=== PATIENT | female | born 1955 | race Caucasian/White ===

== ENCOUNTER 2017-03-17 20:45 | Inpatient (IN) | payer OTHER ==
[~2017-03-17] VITALS: Ht 154.9 cm; Wt 83.7 kg
--- NOTE | 2017-03-17 23:11 | DIAGNOSTIC IMAGING REPORT ---
PROCEDURE: XR CHEST 2 VIEW INDICATION: FEVER TECHNIQUE: Two views. COMPARISON: None. FINDINGS: Slight patient rotation. The cardiomediastinal contour and central vasculature are within normal limits. Strandy density laterally in the left lower lung and in the retrocardiac region. Minimal parenchymal opacity in the right infrahilar region. No effusion. No pneumothorax. The visualized osseous structures are intact. IMPRESSION: 1. Minor bibasilar and retrocardiac strandy densities, probably atelectasis/scarring although pneumonia is not excluded.
--- NOTE | 2017-03-17 23:42 | ED ORDER SUMMARY ---
..... Patient: DOROTHY WING OrderSheet [facility] VisitID: [id number] [place] [address] 61y, F Registration Date/Time: 03/17/2017 ORDER SHEET Weight: 81.6 kg (stated) Allergies: Ceftriaxone, Ciprofloxacin, Iodine GENERAL ORDERS: Blood Culture (No) (N/A) Urgent (20:58 03/17/2017 Migdalia Booker) (Ack 21:02 AMcQuoid ER Tech1) (21:07 TBowen R.N.) CBC w Diff Urgent (20:59 03/17/2017 Migdalia Booker) (Ack 21:02 AMcQuoid ER Tech1) (21:07 TBowen R.N.) CMP Urgent (20:59 03/17/2017 Migdalia Booker) (Ack 21:02 AMcQuoid ER Tech1) (21:07 TBowen R.N.) UA-Culture if indicated Urgent (20:59 03/17/2017 Migdalia Booker) (Ack 21:02 AMcQuoid ER Tech1) (1:38 Martín R.N.) Lactate, Serum Urgent (20:59 03/17/2017 Migdalia Booker) (Ack 21:02 AMcQuoid ER Tech1) (21:07 TBowen R.N.) PCT (Procalcitonin) Urgent (20:59 03/17/2017 Migdalia Booker) (Ack 21:02 AMcQuoid ER Tech1) (21:07 TBowen R.N.) Chest 2V Urgent (21:37 03/17/2017 Panda RUBIO) (Ack 21:39 AMcQuoid ER Tech1) (21:54 Gualberto) MEDICATION ORDERS: Tylenol PO 1,000 mg (NOW) (20:59 03/17/2017 Migdalia Booker) (21:08 HSoule) IV FLUIDS: IV NS : initial bolus 1000 mL (1000 mL/hr), then 1000 mL/hr for X2 (NOW) (Infuse a total of 2.5 L) (20:58 03/17/2017 Migdalia Booker) (21:04 omanlexi R.N.) Vancomycin IV 25 mg/kg (NOW) (21:38 03/17/2017 Panda RUBIO) (22:09 Martín Guzman) Invanz IV 1 gm/50mL (NOW) (21:38 03/17/2017 Panda RUBIO) (22:08 Martín Guzman) ORDER SHEET NOTES: [Electronically signed by Yo Villegas R.N. (01:45 03/18/2017)] [Electronically signed by René Zaidi MD (20:55 03/18/2017)] [Electronically locked/signed by Yo Villegas R.N. (01:45 03/18/2017)]
--- NOTE | 2017-03-17 23:42 | ED CLINICAL REPORT ---
Clinical Report - Physicians/Mid Levels Located Within [facility] [address] [place] [address] 03/17/2017 20:46 Patient: DOROTHY WING Time Seen: 21:19 Mar 17 2017. Arrived- By private vehicle. Historian- patient. Not EMS personnel. CPT: ER phys charges level 5 (#[id number]). HISTORY OF PRESENT ILLNESS Chief Complaint: Weak , confused with fever and abdominal pain. ( ( Pt thinks that she might have passed a kidney stone 3 days ago but has developed lower Abd Pain and a fever. Pt's spouse states that she became confused at 1900 after a nap, with slurred speech and poor coordination while trying to ambulate.). Onset. (about 2 days ago). She has had abdominal pain and flank pain. Last oral intake by patient was (about 3 hours ago). Poor po for 2 days.). This started about 3 days FEED WEIGHER and is still present. At its maximum, severity described as moderate. When seen in the E.D., severity described as moderate. The patient has had fatigue and weakness. Similar symptoms previously: None. Recent medical care: Not recently seen/assessed. REVIEW OF SYSTEMS The patient has had fever, abdominal pain, chills and weakness. No sore throat or throat, sinus drainage, cough or difficulty breathing. No chest pain, nausea, vomiting, diarrhea or difficulty with urination. No skin rash, headache, blackouts, diabetic symptoms or easy bruising. The patient has had moderate difficulty with ambulation (staggering tonight.). It has been associated with weakness in both legs. She has had difficulty walking. All systems otherwise negative, except as recorded above. PAST HISTORY Hypertension. Immunizations: up-to-date. The patient has had a hysterectomy. Diabetes Mellitus Type 2. Nephrolithiasis. Cervical Radiculopathy. Depression. Hypertension. Hypercholesterolemia. -- ADDITIONAL SURGERIES: Cholecystectomy. Tonsillectomy. Tubal Ligation. -. Medications: MetFORMIN HCl Oral. GlyBURIDE Oral 5 mg, daily. AmLODIPine Besylate Oral (Tablet 5 mg) 1 tablet, daily. Citalopram Hydrobromide Oral (Tablet 20 mg) 1 tablet, daily. Hydrochlorothiazide Oral (Tablet 25 mg) 1 tablet, daily. Losartan Potassium Oral (Tablet 50 mg) 1 tablet, daily. Simvastatin Oral (Tablet 20 mg) 1 tablet, at bedtime. Allergies: Ceftriaxone. Definite Moderate(hives) Ciprofloxacin. Definite Moderate(hives) Iodine. Definite Moderate(Anaphylaxis) (SOB). SOCIAL HISTORY Smoker- current status unknown. No alcohol use or drug use. ADDITIONAL NOTES The nursing notes have been reviewed. PHYSICAL EXAM Vital Signs: 03/17/2017 20:51 BP: 157/98. HR: 134. RR: 20. O2 saturation: 90%. Temp: 103 F. Pain level now: 12/08. Appearance: Alert. Patient in mild distress. Eyes: Pupils equal, round and reactive to light. Eyes normal inspection. ENT: Dry mucous membranes present. Pharynx normal. Neck: Normal inspection. CVS: Tachycardia. Heart sounds normal. Pulses normal. Respiratory: No respiratory distress. Breath sounds normal. Chest nontender. Abdomen: Soft and nontender. Bowel sounds normal. Back: Normal inspection. No CVA tenderness. Skin: Normal skin color. No rash. Extremities: Extremities exhibit normal ROM. Neuro: Oriented X 3. No motor deficit. She has had constant, generalized weakness. No sensory deficit. LABS, X-RAYS, AND EKG Chest X-ray: (Patchy RLL and LLL infiltrates.). Views: PA and lateral. Technique: good. The X-rays were independently viewed by me and interpreted contemporaneously by me. Prior films were not available for comparison. Laboratory Tests: UA-Culture if indicated: (LEONID: 03/17/2017 23:00) ( MsgRcvd 03/17/2017 23:14) Final results Test Result Flag Units (Reference) URINE COLOR YELLOW URINE APPEARANCE CLEAR URINE GLUCOSE NEGATIVE (NEGATIVE) URINE BILIRUBIN NEGATIVE (NEGATIVE) URINE KETONE NEGATIVE (NEGATIVE) URINE SPECIFIC GRAVITY 1.010 (1.010-1.030) URINE PH 6.0 (5.0-8.0) URINE PROTEIN 1+ (NEGATIVE) URINE UROBILINOGEN 0.2 EU/dL (0.2-1.0) URINE NITRITE NEGATIVE (NEGATIVE) URINE BLOOD 2+ (NEGATIVE) URINE LEUK ESTERASE TRACE (NEGATIVE) URINE RBC 0-1 rbc/hpf (0-1) URINE WBC 5-10 wbc/hpf (0-1) URINE EPITHELIAL CELLS 0-1 EPI/hpf (0-5) URINE BACTERIA MODERATE (2+ TO 3+) (NONE SEEN) URINE COMMENT CULTURE INDICATED 1-3 GRANULAR CASTS. 1+ AMORPHOUS URATES.URINE CULTURES ARE SET-UP BASED ON THE FOLLOWING CRITERIA:POSITIVE NITRITEPOSITIVE LEUKOCYTE ESTERASEGREATER THAN 10 WHITE BLOOD CELLSMODERATE (2+) OR GREATER BACTERIA CBC w Diff: (LEONID: 03/17/2017 20:58) ( MsgRcvd 03/17/2017 22:06) Final results Test Result Flag Units (Reference) WHITE BLOOD COUNT 9.5 K/uL (4.5-11.5) RED BLOOD COUNT 4.14 M/uL (4.00-5.20) HEMOGLOBIN 11.4 L gm/dL (12.0-16.0) HEMATOCRIT 33.8 L % (36.0-46.0) MEAN CELL VOLUME 82 fL (80-100) MEAN CORPUSCULAR HGB 28 pg (26-34) MEAN CORPUSCULAR HGB CONC 34 g/dL (31-37) RED CELL DISTRIBUTION WIDTH 15.5 H % (11.6-14.8) PLATELET COUNT 139 L K/uL (150-400) POLY % 94 H % (50-75) BAND % 0 % (0-8) LYMPH 5 L % (25-40) MONO 1 L % (3-14) EOSINOPHIL % 0 % (0-4) BASOPHIL % 0 % (0-2) METAMYELOCYTE % 0 % (0-1) MYELOCYTE 0 % (0-1) OTHER CELL TYPE 0 POIKILOCYTOSIS 1+ ANISOCYTOSIS 1+ OCT COMMENT GIANT PLATELETS SEEN Lactate, Serum: (LEONID: 03/17/2017 20:58) ( MsgRcvd 03/17/2017 21:35) Final results Test Result Flag Units (Reference) LACTIC ACID 1.5 mmol/L (0.4-2.0) [id number]: (LEONID: 03/17/2017 20:58) ( MsgRcvd 03/17/2017 22:07) Final results Test Result Flag Units (Reference) PROCALCITONIN 47.8 H ng/mL (0-0.5) PCT Concentration: Interpretation : Risk/option for action PCT <=0.5 ng/mL : Systemic : Low risk forinfection(sepsis): progression to severeis not likely. : systemic infection.Local bacterial : CAUTION-PCT levelsinfection is : below 0.5 ng/mL do notpossible. : exclude an infection,because localizedinfections (withoutsystemic signs) may beassociated with suchlow levels. If PCT ismeasured very earlyafter a bacterialchallenge (usually <6hours), these valuesmay still be low. Inthis case PCT shouldbe re-assessed 6-24hours later. PCT >0.5 and : Systemic infection: Moderate risk for<= 2 ng/mL : (sepsis) is : progression to severepossible, but : systemic infection.other conditions : The patient should beare known to : closely monitoredelevate PCT. : both clinically andby re-assessing PCTwithin 6-24 hours. PCT > 2 ng/mL : Systemic infection: High risk for(sepsis) is likely: progression to severeunless other : systemic infection.causes are known. : PCT >= 10 ng/mL : Important systemic: High likelihood ofinflammatory : severe sepsis orresponse, almost : septic shock.exclusively due to:severe bacterial :sepsis or septic :shock. : CMP: (LEONID: 03/17/2017 20:58) ( MsgRcvd 03/17/2017 21:20) Final results Test Result Flag Units (Reference) GLUCOSE 227 H mg/dL (70-110) BUN 42 H mg/dL (7-18) CREATININE 1.4 H mg/dL (0.6-1.3) Estimated GFR 40.63 mL/min Estimated GFR- 49.24 mL/min Note: Persistent reduction over 3 months in eGFR<60 mL/min/1.73 m2 defines CKD. Patients with eGFR values>=60 mL/min/1.73 m2 may also have CKD if evidence ofpersistent proteinuria. Additional information may be foundat www.kidney.org. SODIUM 135 L mmol/L (136-145) POTASSIUM 3.5 mmol/L (3.5-5.1) CHLORIDE 98 mmol/L (98-107) CARBON DIOXIDE 24 mmol/L (21-32) CALCIUM 8.7 mg/dL (8.5-10.1) TOTAL PROTEIN 7.8 g/dL (6.4-8.2) ALBUMIN 2.9 L g/dL (3.3-5.0) BILIRUBIN, TOTAL 0.7 mg/dL (0.0-1.0) ALKALINE PHOSPHATASE 85 U/L (46-116) AST (SGOT) 17 U/L (15-37) ALT (SGPT) 24 U/L (12-78) . PROGRESS AND PROCEDURES Course of Care: IV NS BC times 2 Vancomycin 25 mg /kg IV Invanz 1 g IV. Discussed case with on-call health care provider, (Dann). Reviewed test results. Agreed upon treatment plan and decision to admit. Health care provider will see patient in hospital. Patient/family counseled. Old medical records ordered. Disposition orders written. Disposition: Admitted to the Critical Care Unit. CLINICAL IMPRESSION Sepsis Fever Weakness UTI. (Electronically signed by René Zaidi MD 03/18/2017 20:55)
--- NOTE | 2017-03-17 23:42 | ED ORDER SUMMARY ---
..... Patient: DOROTHY WING OrderSheet [facility] VisitID: [id number] [place] [address] 61y, F Registration Date/Time: 03/17/2017 ORDER SHEET Weight: 81.6 kg (stated) Allergies: Ceftriaxone, Ciprofloxacin, Iodine GENERAL ORDERS: Blood Culture (No) (N/A) Urgent (20:58 03/17/2017 Migdalia Booker) (Ack 21:02 AMcQuoid ER Tech1) (21:07 TBowen R.N.) CBC w Diff Urgent (20:59 03/17/2017 Migdalia Booker) (Ack 21:02 AMcQuoid ER Tech1) (21:07 TBowen R.N.) CMP Urgent (20:59 03/17/2017 Migdalia Booker) (Ack 21:02 AMcQuoid ER Tech1) (21:07 TBowen R.N.) UA-Culture if indicated Urgent (20:59 03/17/2017 Migdalia Booker) (Ack 21:02 AMcQuoid ER Tech1) (1:38 Martín R.N.) Lactate, Serum Urgent (20:59 03/17/2017 Migdalia Booker) (Ack 21:02 AMcQuoid ER Tech1) (21:07 TBowen R.N.) PCT (Procalcitonin) Urgent (20:59 03/17/2017 Migdalia Booker) (Ack 21:02 AMcQuoid ER Tech1) (21:07 TBowen R.N.) Chest 2V Urgent (21:37 03/17/2017 Panda RUBIO) (Ack 21:39 AMcQuoid ER Tech1) (21:54 Gualberto) MEDICATION ORDERS: Tylenol PO 1,000 mg (NOW) (20:59 03/17/2017 Migdalia Booker) (21:08 HSoule) IV FLUIDS: IV NS : initial bolus 1000 mL (1000 mL/hr), then 1000 mL/hr for X2 (NOW) (Infuse a total of 2.5 L) (20:58 03/17/2017 Migdalia Booker) (21:04 omanlexi R.N.) Vancomycin IV 25 mg/kg (NOW) (21:38 03/17/2017 Panda RUBIO) (22:09 Martín Guzman) Invanz IV 1 gm/50mL (NOW) (21:38 03/17/2017 Panda RUBIO) (22:08 Martín Guzman) ORDER SHEET NOTES: [Electronically signed by Yo Villegas R.N. (01:45 03/18/2017)] [Electronically signed by René Zaidi MD (20:55 03/18/2017)] [Electronically locked/signed by Yo Villegas R.N. (01:45 03/18/2017)]
--- NOTE | 2017-03-17 23:42 | ED NURSING NOTES ---
Clinical Report - Nurses [facility] [address] [place] [address] 03/17/2017 20:46 Patient: DOROTHY WING TRIAGE Triage time 20:50 Mar 17 2017. Acuity: LEVEL 3. Chief Complaint: PELVIC PAIN and (fever). Alert. IRAIDA COMA SCORE: Iraida Coma Scale: 15- eyes open spontaneously (4); best verbal response- oriented x 4 (5); best motor response- obeys commands (6). --21:09 Yo Villegas R.N. 20:51 03/17/17. BP: 157/98. HR: 134. RR: 20. O2 saturation: 90%. Temp: 103 F. Pain level now: 2/10. Additional comments: Muscle soreness in chest. --21:09 Yo Villegas R.N. <<STRICKEN ENTRY-- Not alert. --23:07 Yo Villegas R.N. --END STRIKE>> Correction --00:55 Yo Villegas R.N. <<STRICKEN ENTRY-- 23:00 03/17/17. BP: 101/71. HR: 75 (regular). RR: 16. O2 saturation: 100%. Temp: 98.1 F (oral). Pain level now: 10/10. Additional comments: Throat Pain. --23:07 Yo Villegas R.N. --END STRIKE>> Correction. --00:55 Yo Villegas R.N. Weight: 81.6 kg stated. Height/Length: 61 inches Per Patient. BMI: 34. --20:55 Yo Villegas R.N. Medications AmLODIPine Besylate Oral (Tablet 5 mg) 1 tablet, daily. Citalopram Hydrobromide Oral (Tablet 20 mg) 1 tablet, daily. Hydrochlorothiazide Oral (Tablet 25 mg) 1 tablet, daily. Losartan Potassium Oral (Tablet 50 mg) 1 tablet, daily. Simvastatin Oral (Tablet 20 mg) 1 tablet, at bedtime. --20:56 Yo Villegas R.N. GlyBURIDE Oral 5 mg, daily. --21:07 Yo Villegas R.N. MetFORMIN HCl Oral. --21:07 Yo Villegas R.N. The following entry was struck and corrected by Yo Villegas R.N., 21:12 (03/17/17) Reason for correction - other(correction). <<STRICKEN ENTRY-- GlyBURIDE Oral. --21:07 Yo Villegas R.N. --END STRIKE>> The following entry was struck by Yo Villegas R.N., 21:11 (03/17/17) Reason - other. <<STRICKEN ENTRY-- Cyclobenzaprine HCl Oral (Tablet 10 mg) 1 tablet, 2x a day as needed. --20:56 Yo Villegas R.N. --END STRIKE>> The following entry was struck by Yo Villegas R.N., 21:11 (03/17/17) Reason - other. <<STRICKEN ENTRY-- Amoxicillin Oral (Capsule 500 mg) 2 capsules, twice daily. --20:56 Yo Villegas R.N. --END STRIKE>>. Allergies Ceftriaxone. Definite Moderate(hives) Ciprofloxacin. Definite Moderate(hives) Iodine. Definite Moderate(Anaphylaxis) (SOB) --20:56 Yo Villegas R.N. Medication/allergy information source: the patient. --21:09 Yo Villegas R.N. History Arrived by private vehicle. Historian: patient. Accompanied by spouse. ( Pt thinks that she might have passed a kidney stone 3 days ago but has developed lower Abd Pain and a fever. Pt's spouse states that she became confused with slurred speech and poor coordination while try to ambulate.). Onset. (about 2 days ago). She has had abdominal pain and flank pain. Last oral intake by patient was (about 3 hours ago). Treatment FRONT DESK SPECIALIST: (Zofran about 8 hours ago). PAST MEDICAL HX: Hypertension. Immunizations: up-to-date. The patient has had a hysterectomy. SOCIAL HX: Never smoker. No alcohol use or drug use. No infectious disease exposure. ABUSE ASSESSMENT: No report of abuse. FALL RISK ASSESSMENT: Fall risk assessment completed. No fall risk identified. NUTRITIONAL RISK ASSESSMENT: The nutritional risk assessment revealed no deficiencies. FUNCTIONAL ASSESSMENT: Functional assessment: no impairments noted. LEARNING NEEDS ASSESSMENT: The learning needs assessment revealed no barriers. SKIN INTEGRITY ASSESSMENT: Skin integrity risk assessment completed. No skin integrity risk identified. --21: Yo Villegas R.N. PROBLEMS: Diabetes Mellitus Type 2. Nephrolithiasis. Cervical Radiculopathy. Depression. Hypertension. Hypercholesterolemia. --21:08 Yo Villegas R.N. ADDITIONAL SURGERIES: Cholecystectomy. Tonsillectomy. Tubal Ligation. --21:08 Yo Villegas R.N. Interventions ID band on patient. To treatment room. --21: Yo Villegas R.N. PHYSICAL ASSESSMENT To room via wheelchair. GENERAL / NEURO / PSYCH: Alert. Oriented X 4. HEENT: Mucous membranes are pink. CVS: Cardiac rhythm: sinus tachycardia. GI / : Abdominal tenderness in the lower abdomen. SKIN: Skin is warm and dry. --23:03 Yo Villegas R.N. NURSING PROGRESS NOTES 20:54 03/17/2017 Site #1 started via IV in the right antecubital space with an 20g angiocath, with aseptic technique and good blood return; one attempt. Blood drawn: rainbow set. Saline lock flushed with 10 mL saline (and one blood culture). --21:04 Yo Villegas R.N. 20:54 03/17/2017 Started bag #1 1000 mL IV Fluids IV NS (Saline); at 999 mL/hr over 60 minute(s) via site #1. Allergies verified and confirmed 5 rights. IV patency established. IV site checked: no pain, redness, or swelling. IV flushed thoroughly pre- and post-medication administration. --21:04 Yo Villegas R.N. 21:03 03/17/2017 Tylenol (Acetaminophen) PO Tablets 1000 mg given. Allergies verified and confirmed 5 rights. --21:08 Samantha Bryan Monitoring of patient in place. Patient gowned. Reassurance given. Patient identifiers checked. Call light placed in reach. Side rails up. Bed placed in lowest position. Brakes of bed on. Patient ready for evaluation- chart flagged and ED physician notified. --21:10 Yo Villegas R.N. 21:03/17/2017 Site #2 started via IV in the left hand with an 20g angiocath, with aseptic technique and good blood return; one attempt. Blood drawn. Saline lock flushed with 10 mL saline (2nd blood culture done). --21:15 Yo Villegas R.N. 21:05 03/17/2017 Started bag #2 1000 mL IV Fluids IV NS (Saline); at 500 mL/hr over 2 hour(s) via site #2. Allergies verified and confirmed 5 rights. IV patency established. IV site checked: no pain, redness, or swelling. IV flushed thoroughly pre- and post-medication administration. --21:16 Yo Villegas R.N. 21:53 03/17/2017 Invanz IVP 1 gm given over 30 minute(s) via site #1. Allergies verified and confirmed 5 rights. IV patency established. IV site checked: no pain, redness, or swelling. IV flushed thoroughly pre- and post-medication administration. IVP given by RN. --22:08 Yo Villegas R.N. 22:10 03/17/17. BP: 118/61. HR: 105. RR: 16. O2 saturation: 93% on room air. --22:11 Yo Villegas R.N. 21:57 03/17/2017 IV Fluids IV NS Discontinued: bag #2 infused. Total amount infused: 1000 mL. IV patency established. IV site checked: no pain, redness, or swelling. IV flushed thoroughly. --22:12 Yo Villegas R.N. 21:59 03/17/2017 Started 1 gm of Vancomycin IVPB in bag #1 200 mL; at 200 mL/hr over 60 minute(s) via site #2 via IV pump. Allergies verified and confirmed 5 rights. IV patency established. IV site checked: no pain, redness, or swelling. IV flushed thoroughly pre- and post-medication administration. --22:09 Yo Villegas R.N. ( Assisted patient to restroom, patient returned to monitor.). --23:18 Samantha Bryan 23:28 03/17/2017 Vancomycin IVPB Bag Change: bag #1 infused. Total amount infused: 200ml . STARTED bag #2 at 200 mL/hr via IV pump. Confirmed 5 rights. IV patency established. IV site checked: no pain, redness, or swelling. IV flushed thoroughly. (2nd Gm of Vancomycin). --23:38 Yo Villegas R.N. 23:00 03/17/17. BP: 105/56. HR: 92. RR: 25. O2 saturation: 94% on room air. --00:16 Yo Villegas R.N. 00:00 03/18/17. BP: 114/54. HR: 86 (regular). RR: 19. O2 saturation: 94%. --00:17 Yo Villegas R.N. 00:30 03/18/2017 IV Fluids IV NS Discontinued: bag #2 infused. Total amount infused: 1000 mL. IV patency established. IV site checked: no pain, redness, or swelling. IV flushed thoroughly. --01:45 Yo Villegas R.N. 00:50 03/18/2017 Site #[address] upon admission; no pain and no signs of infection or infiltration. Good blood return present. Flushed with 10 mL saline; flushes easily. --01:42 Yo Villegas R.N. 00:50 03/18/2017 Vancomycin IVPB Discontinued: bag #2 infused. Total amount infused: 200 mL. IV patency established. IV site checked: no pain, redness, or swelling. IV flushed thoroughly. --01:40 Yo Villegas R.N. 00:55 03/18/2017 Site #[address] upon admission. Good blood return present. Converted to saline lock and flushed with 10 mL saline; flushes easily. --01:41 Yo Villegas R.N. 22:25. ( Invanz one Gm IVPB completed). --01:44 Yo Villegas R.N. DISPOSITION / DISCHARGE 01:00 03/18/17. BP: 120/64. HR: 83. RR: 20. O2 saturation: 94% on room air. Temp: 98.8 F (oral). Pain level now: 2/10. Additional comments: Generalized Muscle Pain. --01:37 Yo Villegas R.N. Departure time: 0100. --01:37 Yo Villegas R.N. 01:00. Admitted to the Critical Care Unit. Transferred. Transported via stretcher by nurse with IV. Report was given. (PIPO Martinez). Patient's personal items; items were placed in belongings bag and transported with the patient. --01:38 Yo Villegas R.N. Locked/Released at 03/18/2017 1:45 by Yo Villegas R.N.
[2017-03-18] VITALS (14 sets, daily range): BP systolic 107–140; BP diastolic 38–75
--- NOTE | 2017-03-18 02:36 | History & Physical Report ---
Information Source Information Source: Self, Spouse/Partner Reliability: Good History Chief Complaint fever, chills and malaise History of Present Illness Patient is a 61 year old female with a pmh of kidney stones, hypertension, and diabetes mellitus that is presenting with evidence of urosepsis. Patient had been in her usual state of health when she developed a kidney stone and passed it one day ago. Patient has a history of passing around 2 kidney stones a year. She usually passes them without any incidence and has been hospitilized a few times for it in the past. Patient knows when she has kidney stones due to the same flank pain that occurs every time she develps the,. During this incident patient passed the stone and a few hours later started to develop feelings of malaise, had subjective fevers and chills at home. Patient then started developing feelings of nause and vomited twice. Patient was convinced that she had the flu given her symptoms and decided to come to the hosptial. Patient was evaluated here and found that she had a urinary tract infection. Patient History 1. UTI (urinary tract infection) 2. Sepsis 3. Hypertension 4. 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 She manages all her ADLs indepentely. She lives at home with her . She does not smoke, use drugs or drink alcohol. Family History Family history was reviewed; no changes noted. Advance Directive None Medications and Allergies Medications Home Medications amlodopine 5 mg dialy citalopram 20 mg daily hydrocholorthiazide 25 mg dialy Losartan 50 mg daily Simvastatin 20 mg daily Glyburide 5 mg daily Metformin 1000 mg daily oral Current Medications Sig/Nato Start time Last Medication Dose Route Stop Time Status Admin Amlodipine Besylate 5 MG DAILY 03/18 900 AC PO Citalopram 20 MG DAILY 03/18 900 AC Hydrobromide PO Hydrochlorothiazide 25 MG DAILY 03/18 900 AC PO Losartan Potassium 50 MG DAILY 03/18 900 AC PO Insulin Human Lispro See Dose ACHS 03/18 0730 AC Insts (1) SC Acetaminophen 650 MG Q6H PRN 03/18 0230 AC PO Ondansetron HCl 4 MG Q6H PRN 03/18 0230 AC IV Sodium Chloride 1,000 ML ASDIRECTED 03/18 230 AC IV Dose Instructions: (1)Insulin Human Lispro: LOW DOSE: ACCUCHECK AND SLIDING SCALE >>To change sliding scale DISCONTINUE this order and enter a NEW order. Thanks< Allergies Coded Allergies: Iodine (Severe, ANAPHALAXIS 03/18/17) Ceftriaxone (Intermediate, HIVES 03/18/17) Ciprofloxacin (Intermediate, HIVES 03/18/17) Review of Systems Constitutional Fever, Chills, Weakness, Malaise. Denies: Sweats, Other. Eyes Denies: Pain, Vision Change, Conjunctival Inflammation, Eyelid Inflammation, Redness, Other. ENT Denies: Ear Pain, Ear Discharge, Nose Pain, Nasal Discharge, Nasal Congestion, Mouth Pain, Mouth Swelling, Throat Pain, Throat Swelling, Other. Respiratory Denies: Cough, Dry, SOB w/exertion, Wheezing, Hemoptysis, Pleuritic Pain, Sputum , Other. Cardiovascular Denies: Chest Pain, Palpitations, Orthopnea, PND, Edema, Light-headedness, Other. Gastrointestinal Nausea, Vomiting, Abdominal Pain. Denies: Diarrhea, Constipation, Melena, Hematochezia, Other. Genitourinary Denies: Dysuria, Frequency, Incontinence, Hematuria, Retention, Other. Musculoskeletal Denies: Neck Pain, Shoulder Pain, Arm Pain, Back Pain, Hand Pain, Leg Pain, Foot Pain, Other. Skin Denies: Rash, Lesions, Jaundice, Bruising, Other. Neurological Denies: Weakness, Numbness, Incoordination, Change in speech, Confusion, Seizures, Other. Physical Exam Vital Signs / I&Os Vital Signs Date Time Temp Pulse Resp B/P Pulse O2 O2 Flow FiO2 Ox Delivery Rate 03/18 0513 85 22 124/57 99 Room Air 0.0 03/18 0427 85 16 107/57 98 Room Air 0.0 03/18 0311 87 21 110/38 92 Room Air 0.0 03/18 0215 98.4 83 24 111/57 95 Room Air 0.0 03/18 0130 Room Air 03/18 0110 98.4 81 19 124/61 97 Room Air 0.0 General Appearance Alert, Oriented X3, No acute distress, Mild distress HEENT Atraumatic, PERRLA, Moist mucous membranes Lungs Clear to auscultation, Normal air movement Neck Supple, No JVD, No masses, No thyromegaly Cardiovascular Regular rate and rhythm, Normal S1 and S2, No murmurs, gallops, rubs Abdomen Normal bowel sounds, No tenderness, No guarding, No masses, No hepatosplenomegaly Extremities No cyanosis, No clubbing, No edema, Normal pulses Skin No Rashes, No Breakdown Neurological Normal gait, Normal speech, Sensation intact, Cranial nerves intact , Strength 5/5 x4 ext's Psych/Mental Status Mood normal LAB Results Laboratory Tests 03/17 Chemistry Plasma Sodium (136 - 145 mmol/L) 135 Plasma Potassium (3.5 - 5.1 mmol/L) 3.5 Plasma Chloride (98 - 107 mmol/L) 98 CO2 (Enzymatic) (21 - 32 mmol/L) 24 BUN (7 - 18 mg/dL) 42 Creatinine (0.6 - 1.3 mg/dL) 1.4 Est GFR ( Amer) (mL/min) 49.24 Est GFR (Non-Af Amer) (mL/min) 40.63 Glucose (70 - 110 mg/dL) 227 Lactic Acid (0.4 - 2.0 mmol/L) 1.5 Plasma Calcium (8.5 - 10.1 mg/dL) 8.7 Total Bilirubin (0.0 - 1.0 mg/dL) 0.7 AST (15 - 37 U/L) 17 ALT (12 - 78 U/L) 24 Alkaline Phosphatase (46 - 116 U/L) 85 Total Protein (6.4 - 8.2 g/dL) 7.8 Albumin (3.3 - 5.0 g/dL) 2.9 Procalcitonin (0 - 0.5 ng/mL) 47.8 Hematology WBC (4.5 - 11.5 K/uL) 9.5 RBC (4.00 - 5.20 M/uL) 4.14 Hgb (12.0 - 16.0 gm/dL) 11.4 Hct (36.0 - 46.0 %) 33.8 MCV (80 - 100 fL) 82 MCH (26 - 34 pg) 28 RDW (11.6 - 14.8 %) 15.5 Neut % (Auto) (50 - 75 %) 94 Lymph % (Auto) (25 - 40 %) 5 [place] % (Auto) (3 - 14 %) 1 Eos % (Auto) (0 - 4 %) 0 Baso % (Auto) (0 - 2 %) 0 Band Neutrophils % (0 - 8 %) 0 Metamyelocytes % (0 - 1 %) 0 Myelocytes (0 - 1 %) 0 Other Cell Type GIANT PLATELETS SEEN Plt Count, EDTA (150 - 400 K/uL) 139 Poikilocytosis (manual 1+ Anisocytosis (manual) 1+ PUBS MCHC (31 - 37 g/dL) 34 03/17 2300 Urines Urine Color YELLOW Urine Appearance CLEAR Urine pH (5.0 - 8.0) 6.0 Ur Specific [place] (1.010 - 1.030) 1.010 Urine Protein (NEGATIVE) 1+ Urine Ketones (NEGATIVE) NEGATIVE Urine Blood (NEGATIVE) 2+ Urine Nitrite (NEGATIVE) NEGATIVE Urine Bilirubin (NEGATIVE) NEGATIVE Urine Urobilinogen (0.2 - 1.0 EU/dL) 0.2 Ur Leukocyte Esterase (NEGATIVE) TRACE Urine RBC (0 - 1 rbc/hpf) 0-1 Urine WBC (0 - 1 wbc/hpf) 5-10 Ur Epithelial Cells (0 - 5 EPI/hpf) 0-1 Urine Bacteria (NONE SEEN) MODERATE (2+ TO 3+) Urine Glucose (NEGATIVE) NEGATIVE Urine Comment CULTURE INDICATED Microbiology Date/Time Procedure - Status Source Growth 03/18 0125 MRSA Screen - RECD NASAL 03/17 2300 Urine Culture - RECD URINE CC 03/17 2100 Blood Culture - RECD BLOOD 03/17 2058 Blood Culture - RECD BLOOD Assessment and Plan Problem List 1. UTI (urinary tract infection) Plan - evidence of uti on analysis - will treat with invanz given history of allergies to cephalosporins and aminoglycosides - will trend wbc - will monitor vitals - NS will go in at 100 ml.hr 2. Sepsis Plan - antibiotics and fluids intiaited early - no evidence of lactic acid build up - will continue to trend labs - will await urine and blood cultures 3. Hypertension Plan - established diagnosis - will c/w losartan, amlodopine, and hydrochlorothiazide - no blood pressure abnormalities seen thus far 4. Diabetes mellitus Plan - established diagnosis - will hold metformin and glyburide temporarily - will initiate sliding scale - carb consistent diet while in patient
[2017-03-18] MEDS ORDERED: GLIPIZIDE5 MG PO (03:53)
[2017-03-18] MEDS ORDERED: SIMVASTATIN20 MG PO (03:56)
[2017-03-18] MEDS ORDERED: AMLODIPINE BESYL5 MG PO (03:56)
[2017-03-18] MEDS ORDERED: COZAAR25 MG PO (03:58)
[2017-03-18] MEDS ORDERED: METFORMIN HCL500 MG PO (03:58)
[2017-03-18] MEDS ORDERED: HCTZ/TRIAMTEREN1 TA1 PO (03:59)
--- NOTE | 2017-03-18 20:56 | ED MED RECONCILIATION SUMMARY ---
Patient: DOROTHY WING Medication Reconciliation Report [facility] VisitID: [id number] [address] [place] [address] 61y, F Registration Date/Time: 03/17/2017 Weight: 81.6 kg Height/Length: 61 in. BMI: 34.0 ALLERGIES: Ceftriaxone, Ciprofloxacin, Iodine The patient's Home Medications are listed below: THE FOLLOWING MEDICATIONS NEED TO BE RECONCILED: AmLODIPine Besylate Oral (5 mg) 1 tablet, daily Citalopram Hydrobromide Oral (20 mg) 1 tablet, daily GlyBURIDE Oral 5 mg, daily Hydrochlorothiazide Oral (25 mg) 1 tablet, daily Losartan Potassium Oral (50 mg) 1 tablet, daily MetFORMIN HCl Oral Simvastatin Oral (20 mg) 1 tablet, at bedtime The source(s) of the original Home Medication information: patient The following Medications were given to the patient in the Emergency Department: IV NS IV Fluids bolus 0, then 999 mL/hr, administered: 03/17/2017 8:54:00 PM Tylenol [PO] PO 1000 mg, administered: 03/17/2017 9:03:00 PM IV NS IV Fluids bolus 0, then 500 mL/hr, administered: 03/17/2017 9:05:00 PM Invanz [IVP] IVP 1 gm, administered: 03/17/2017 9:53:00 PM Vancomycin [IVPB] IVPB bolus 0, then 1 gm 200 mL/hr, administered: 03/17/2017 9:59:00 PM The following Medications were prescribed to the patient: None.
--- NOTE | 2017-03-18 20:56 | ED MAR SUMMARY ---
..... Medication Administration Record [facility] [address] [place] [address] Patient: DOROTHY WING Visit ID: [id number] 61y, F Weight: 81.6 kg Height/Length: 61 in BMI: 34 ALLERGIES: Ceftriaxone, Ciprofloxacin, Iodine Start 20:54 03/17/2017 Yo Villegas R.N., Stop 00:30 03/18/2017 Yo Villegas R.N. Medication Administered: IV NS (SALINE), Dose: IV Fluids over 60 minute(s), Rate: 999 mL/hr, Dispensed: 1000 mL bag, Site: #1 right AC. Medication Ordered: IV NS : initial bolus 1000 mL (1000 mL/hr), then 1000 mL/hr for X2 (NOW) (Infuse a total of 2.5 L). Given 21:03 03/17/2017 Samantha Bryan, Medication Administered: TYLENOL [PO] (ACETAMINOPHEN), Dose: 1000 mg Tablets PO. Medication Ordered: Tylenol PO 1,000 mg (NOW). Start 21:05 03/17/2017 Yo Villegas R.N., Stop 21:57 03/17/2017 Yo Villegas R.N. Medication Administered: IV NS (SALINE), Dose: IV Fluids over 2 hour(s), Rate: 500 mL/hr, Dispensed: 1000 mL bag, Site: #2 left hand. Medication Ordered: IV NS : initial bolus 1000 mL (1000 mL/hr), then 1000 mL/hr for X2 (NOW) (Infuse a total of 2.5 L). Given 21:53 03/17/2017 Yo Villegas R.N. Medication Administered: INVANZ [IVP], Dose: 1 gm IVP over 30 minute(s), Site: #1 right AC. Medication Ordered: Invanz IV 1 gm/50mL (NOW). Start 21:59 03/17/2017 Yo Villegas R.N., Stop 00:50 03/18/2017 Yo Villegas R.N. Medication Administered: VANCOMYCIN [IVPB], Dose: 1 gm IVPB over 60 minute(s), Rate: 200 mL/hr, Dispensed: 200 mL bag, Site: #2 left hand. Medication Ordered: Vancomycin IV 25 mg/kg (NOW).
--- NOTE | 2017-03-18 20:56 | ED MED RECONCILIATION SUMMARY ---
Patient: DOROTHY WING Medication Reconciliation Report [facility] VisitID: [id number] [address] [place] [address] 61y, F Registration Date/Time: 03/17/2017 Weight: 81.6 kg Height/Length: 61 in. BMI: 34.0 ALLERGIES: Ceftriaxone, Ciprofloxacin, Iodine The patient's Home Medications are listed below: THE FOLLOWING MEDICATIONS NEED TO BE RECONCILED: AmLODIPine Besylate Oral (5 mg) 1 tablet, daily Citalopram Hydrobromide Oral (20 mg) 1 tablet, daily GlyBURIDE Oral 5 mg, daily Hydrochlorothiazide Oral (25 mg) 1 tablet, daily Losartan Potassium Oral (50 mg) 1 tablet, daily MetFORMIN HCl Oral Simvastatin Oral (20 mg) 1 tablet, at bedtime The source(s) of the original Home Medication information: patient The following Medications were given to the patient in the Emergency Department: IV NS IV Fluids bolus 0, then 999 mL/hr, administered: 03/17/2017 8:54:00 PM Tylenol [PO] PO 1000 mg, administered: 03/17/2017 9:03:00 PM IV NS IV Fluids bolus 0, then 500 mL/hr, administered: 03/17/2017 9:05:00 PM Invanz [IVP] IVP 1 gm, administered: 03/17/2017 9:53:00 PM Vancomycin [IVPB] IVPB bolus 0, then 1 gm 200 mL/hr, administered: 03/17/2017 9:59:00 PM The following Medications were prescribed to the patient: None.
--- NOTE | 2017-03-18 20:56 | ED DISCHARGE INSTRUCTIONS ---
Patient: DOROTHY WING General Instructions [facility] VisitID: [id number] [address] [place] [address] 61y, F Registration Date/Time: 03/17/2017 Sepsis Fever Weakness UTI. (Electronically signed by René Zaidi MD 03/18/2017 20:55)
--- NOTE | 2017-03-18 20:56 | ED MAR SUMMARY ---
..... Medication Administration Record [facility] [address] [place] [address] Patient: DOROTHY WING Visit ID: [id number] 61y, F Weight: 81.6 kg Height/Length: 61 in BMI: 34 ALLERGIES: Ceftriaxone, Ciprofloxacin, Iodine Start 20:54 03/17/2017 Yo Villegas R.N., Stop 00:30 03/18/2017 Yo Villegas R.N. Medication Administered: IV NS (SALINE), Dose: IV Fluids over 60 minute(s), Rate: 999 mL/hr, Dispensed: 1000 mL bag, Site: #1 right AC. Medication Ordered: IV NS : initial bolus 1000 mL (1000 mL/hr), then 1000 mL/hr for X2 (NOW) (Infuse a total of 2.5 L). Given 21:03 03/17/2017 Samantha Bryan, Medication Administered: TYLENOL [PO] (ACETAMINOPHEN), Dose: 1000 mg Tablets PO. Medication Ordered: Tylenol PO 1,000 mg (NOW). Start 21:05 03/17/2017 Yo Villegas R.N., Stop 21:57 03/17/2017 Yo Villegas R.N. Medication Administered: IV NS (SALINE), Dose: IV Fluids over 2 hour(s), Rate: 500 mL/hr, Dispensed: 1000 mL bag, Site: #2 left hand. Medication Ordered: IV NS : initial bolus 1000 mL (1000 mL/hr), then 1000 mL/hr for X2 (NOW) (Infuse a total of 2.5 L). Given 21:53 03/17/2017 Yo Villegas R.N. Medication Administered: INVANZ [IVP], Dose: 1 gm IVP over 30 minute(s), Site: #1 right AC. Medication Ordered: Invanz IV 1 gm/50mL (NOW). Start 21:59 03/17/2017 Yo Villegas R.N., Stop 00:50 03/18/2017 Yo Villegas R.N. Medication Administered: VANCOMYCIN [IVPB], Dose: 1 gm IVPB over 60 minute(s), Rate: 200 mL/hr, Dispensed: 200 mL bag, Site: #2 left hand. Medication Ordered: Vancomycin IV 25 mg/kg (NOW).
--- NOTE | 2017-03-18 20:56 | ED DISCHARGE INSTRUCTIONS ---
Patient: DOROTHY WING General Instructions [facility] VisitID: [id number] [address] [place] [address] 61y, F Registration Date/Time: 03/17/2017 Sepsis Fever Weakness UTI. (Electronically signed by René Zaidi MD 03/18/2017 20:55)
[2017-03-19 02:22] VITALS: BP 118/64
[2017-03-19 06:32] VITALS: BP 131/62
--- NOTE | 2017-03-19 07:47 | Progress Note ---
Subjective General Patient is a 61 year old female with a pmh of kidney stones, hypertension, and diabetes mellitus that is presenting with evidence of urosepsis. Patient had been in her usual state of health when she developed a kidney stone and passed it one day ago. Patient has a history of passing around 2 kidney stones a year. She usually passes them without any incidence and has been hospitilized a few times for it in the past. Patient knows when she has kidney stones due to the same flank pain that occurs every time she develps the,. During this incident patient passed the stone and a few hours later started to develop feelings of malaise, had subjective fevers and chills at home. Patient then started developing feelings of nause and vomited twice. Patient was convinced that she had the flu given her symptoms and decided to come to the hosptial. Patient was evaluated here and found that she had a urinary tract infection. Feels stronger, had chills last night, no dyspnea or chest pain, no vomiting but has nausea comes and goes, no dysuria or frequency Review of system: Constitutional: Positive for chills negative for fever Respiratory system: Negative for chest pain shortness of breath Urinary system: Negative for dysuria or frequency Physical Exam Vital Signs / I&Os Vital Signs Date Time Temp Pulse Resp B/P Pulse O2 O2 Flow FiO2 Ox Delivery Rate 03/19 0632 98.6 82 28 131/62 100 Mask 2.0 03/19 0222 97.5 79 24 118/64 98 Mask 2.0 03/18 2213 99.7 87 23 126/53 96 Nasal 1.5 Cannula 03/18 2100 Nasal 1.5 Cannula 03/18 1951 1.5 03/18 1931 101.5 03/18 1804 98.1 83 19 131/70 100 Nasal 1.0 Cannula 03/18 1428 99.1 88 23 121/60 97 Nasal 1.0 Cannula 03/18 1410 1.0 03/18 1353 100.2 03/18 1208 101.7 106 31 140/64 95 Nasal 1.0 Cannula 03/18 1043 98.6 91 33 129/57 92 Room Air 03/18 1021 102.0 108 23 139/69 95 Room Air 03/18 0844 94 18 140/75 95 Room Air I&O 03/19 0000 03/18 1600 03/18 0800 Intake Total 810 1650 0 Output Total 925 1125 1225 Balance -115 525 -1225 General Appearance No acute distress Lungs Clear to auscultation, Normal air movement Neck Supple Cardiovascular Regular rate and rhythm, Normal S1 and S2, No murmurs, gallops, rubs Abdomen Normal bowel sounds, Soft, No tenderness Extremities No edema Skin No Rashes Psych/Mental Status Mental status normal LAB Results Laboratory Tests 03/19 03/19 0509 0509 Chemistry Plasma Sodium (136 - 145 mmol/L) 143 Plasma Potassium (3.5 - 5.1 mmol/L) 3.3 Plasma Chloride (98 - 107 mmol/L) 108 CO2 (Enzymatic) (21 - 32 mmol/L) 27 BUN (7 - 18 mg/dL) 15 Creatinine (0.6 - 1.3 mg/dL) 0.9 Est GFR ( Amer) (mL/min) >60 Est GFR (Non-Af Amer) (mL/min) >60 Glucose (70 - 110 mg/dL) 153 Hemoglobin A1c % (4.5 - 6.2 %) 7.3 Plasma Calcium (8.5 - 10.1 mg/dL) 7.6 Plasma Magnesium (1.8 - 2.4 mg/dL) 1.9 Total Bilirubin (0.0 - 1.0 mg/dL) 0.5 AST (15 - 37 U/L) 19 ALT (12 - 78 U/L) 20 Alkaline Phosphatase (46 - 116 U/L) 70 Total Protein (6.4 - 8.2 g/dL) 6.0 Albumin (3.3 - 5.0 g/dL) 2.0 Hematology WBC (4.5 - 11.5 K/uL) 6.7 RBC (4.00 - 5.20 M/uL) 3.26 Hgb (12.0 - 16.0 gm/dL) 9.1 Hct (36.0 - 46.0 %) 26.7 MCV (80 - 100 fL) 82 MCH (26 - 34 pg) 28 RDW (11.6 - 14.8 %) 15.4 Neut % (Auto) (50 - 75 %) 81 Lymph % (Auto) (25 - 40 %) 13 [place] % (Auto) (3 - 14 %) 3 Eos % (Auto) (0 - 4 %) 1 Baso % (Auto) (0 - 2 %) 0 Band Neutrophils % (0 - 8 %) 2 Metamyelocytes % (0 - 1 %) 0 Myelocytes (0 - 1 %) 0 Other Cell Type 0 Plt Count, EDTA (150 - 400 K/uL) 107 Hypochromic-Microcytic 1+ Anisocytosis (manual) 1+ PUBS MCHC (31 - 37 g/dL) 34 Assessment and Plan Problem List 1. Sepsis Plan blood culturs: gram negative rods, will stop Vanco and continue Invanz 2. UTI (urinary tract infection) Plan as above 3. Diabetes mellitus Plan controlled continue current meds 4. Anemia Plan patient states this is chronic and had extensive work up but ethiology not known
[2017-03-19 10:42] VITALS: BP 138/64
[2017-03-19 14:47] VITALS: BP 134/61
[2017-03-19 18:41] VITALS: BP 133/68
[2017-03-19 22:40] VITALS: BP 126/61
[2017-03-20 02:24] VITALS: BP 131/70
[2017-03-20 06:43] VITALS: BP 133/65
[2017-03-20] MEDS ORDERED: KLOR-CON M2020 MEQ PO (07:22)
[2017-03-20] MEDS ORDERED: BACTRIM DS1 TAB PO ×2 (07:22→11:50)
--- NOTE | 2017-03-20 08:09 | DISCHARGE SUMMARY ---
ADMIT DATE: 03/18/2017 DISCHARGE DATE: 03/20/2017 DISCHARGE DIAGNOSES: 1. Sepsis 2. Urinary tract infection 3. Diabetes 4. Anemia BRIEF HISTORY: This is a 61-year-old female who was admitted on 03/18/2017. The patient presented to the emergency department with a fever, chills, and weakness generalized. The patient also had pain in the flank and she noticed that she passed a stone the day before admission and flank pain is resolved. She had this before and is quite familiar with that, but she developed malaise, fever, and chills with nausea and vomited twice. Her symptoms persisted and the patient came to the emergency department. HOSPITAL COURSE: The patient was admitted with a diagnosis of urinary tract infection and sepsis and started on the vancomycin and Invanz and IV hydration. The blood culture grew gram negative rods so vancomycin was stopped and continued on Invanz. The patient improved during the hospital course. Today, she is doing much better, strong, and back to her normal state. No fever. No chills. No malaise or weakness. No frequency or dysuria. No flank pain. No nausea. No vomiting. No chest pain. No shortness of breath. The patient had frequent loose stools during the hospital course, but she said this is usual for her and happens to her on and off and exactly the same and nothing unusual so we did not do any workup for the diarrhea since this is kind of usual and chronic. The patient also has chronic anemia and has been worked up as an outpatient and has seen a hospitality specialist. No etiology was noted for the anemia. PHYSICAL EXAMINATION: VITAL SIGNS: Temperature 98.8, no spike. Pulse is 87, respirations 20 to 25, blood pressure 133/65, and oxygen saturation 95% on 1 liter of oxygen. LUNGS: Clear to auscultation. No rhonchi, wheezing, or crackles. HEART: Regular S1, S2. No murmur. No S3. ABDOMEN: Soft, nontender. Bowel sounds are positive. EXTREMITIES: No edema. LAB/IMAGING: White blood count is 5.3, hemoglobin 8.8 stable, hematocrit 25.9, platelet count is 117. Sodium is 140, potassium 3.2, chloride 105, CO2 27, BUN is 12, creatinine is 0.7, glucose 147. Calcium is 8. DISCHARGE INSTRUCTIONS/MEDICATIONS: The patient will be discharged home after receiving 20 mEq of IV potassium. Discharge medications: The patient will continue her outpatient medication as before which would be amlodipine 5 mg daily, Celexa 20 mg daily, hydrochlorothiazide 25 mg daily, losartan 50 mg daily, simvastatin 20 mg daily, glyburide 5 mg daily and metformin 1000 mg daily. The patient also will be put on Levaquin 500 mg daily for 7 more days and also potassium supplement 20 mEq daily. The patient will follow up with her primary care physician within a week. Since the patient is ALLERGIC TO CIPRO, I changed her antibiotics to the Bactrim twice a day for 7 more days.
[2017-03-20 09:56] VITALS: BP 133/65
== END 2017-03-20 12:40 | disposition home or self-care (01) | DRG 872 ==
LOC: ED SRH 20:45 → TRANS SRH 23:42 → CC SRH 03-18 01:15
PROVIDERS: ADMIT Emergency Medicine
DX: A41.50 Gram-negative sepsis, unspecified (principal); N39.0 Urinary tract infection, site not specified; D64.9 Anemia, unspecified; E11.9 Type 2 diabetes mellitus without complications; I10 Essential (primary) hypertension; Z79.84 Long term (current) use of oral hypoglycemic drugs; Z87.442 Personal history of urinary calculi
CPT/HCPCS: 85241; 90004; 90047; 90065; 90074; 90098; 90100; 90148; 90469; 91286; 91643; 91672; 92031; 92132; 92720; 93004; 95059